=== PATIENT | female | born 2000 | race Caucasian/White ===

== ENCOUNTER 2020-08-07 11:18 | Emergency (ER) | payer OTHER ==
[~2020-08-07] VITALS: Ht 149.9 cm; Wt 59.0 kg
[2020-08-07 11:23] VITALS: BP 120/72
--- NOTE | 2020-08-07 11:34 | NUR ---
Patient ambulated to bed 12. RN evaluating patient at bedside.
--- NOTE | 2020-08-07 11:47 | NUR ---
PATIENT PRESENTS TO ED WITH EPIGASTRIC PAIN SINCE THURSDAY . PT STATES PAIN IS CONSTANT AND IS BEGINNING TO GET WORSE. PT EXPERIENCING NAUSEA BUT NO VOMITING; DENIES DYSURIA SKIN IS PINK/WARM/DRY; AAOX4 WITH EVEN AND STEADY GAIT; LUNGS CLEAR BL; HR EVEN AND REGULAR; PT DENIES ANY FEVER, CP, SOB, OR COUGH AT THIS TIME; PATIENT STATES PAIN OF 9/10 AT THIS TIME; VSS; PATIENT POSITIONED FOR COMFORT; HOB ELEVATED; BEDRAILS UP X2; BED DOWN. ER MD MADE AWARE OF PT STATUS.
[2020-08-07] MEDS ORDERED: FAMOTIDINE 20 MG TAB PO ONE (11:55)
--- NOTE | 2020-08-07 12:08 | NUR ---
us at bedside
[2020-08-07 12:11] LABS: BASOPHILS % (AUTO) 0.8 % (0.0-2.0); EOSINOPHILS % (AUTO) 0.6 % (0.0-4.0); HEMATOCRIT 38.1 % (36-48); HEMOGLOBIN 12.5 g/dL (12.0-16.0); LYMPHOCYTES # (AUTO) 1.6 K/uL (2.5-16.5); LYMPHOCYTES % (AUTO) 27.7 % (20.5-51.1); MEAN CORPUSCULAR HEMOGLOBIN 30 pg (27-31); MEAN CORPUSCULAR HGB CONC 33 g/dL (33-37); MEAN CORPUSCULAR VOLUME 90.4 fL (80-94); MONOCYTES # (AUTO) 0.4 K/uL (0.8-1.0); MONOCYTES % (AUTO) 6.7 % (1.7-9.3); NEUTROPHILS # (AUTO) 3.7 K/uL (1.8-7.7); NEUTROPHILS % (AUTO) 64.2 % (42.2-75.2); PLATELET COUNT (AUTO) 288 K/uL (140-450); RED BLOOD CELL COUNT(AUTO) 4.22 MIL/uL (4.20-5.40); RED CELL DISTRIBUTION WIDTH 14.1 % (11.6-13.7); WHITE BLOOD COUNT (AUTO) 5.8 K/uL (4.8-10.8)
[2020-08-07 12:29] LABS: ALBUMIN 3.8 g/dL (3.4-5.0); ANION GAP 14.7 (8-16); CARBON DIOXIDE 25.2 mmol/L (21-32); CREATININE 0.7 mg/dL (0.6-1.3); POTASSIUM 3.9 mmol/L (3.5-5.1); TOTAL BILIRUBIN 0.6 mg/dL (0.0-1.0)
[2020-08-07 13:24] VITALS: BP 129/77
== END 2020-08-07 13:25 | disposition home or self-care (01) ==
LOC: MED 11:18
DX: K29.70 Gastritis, unspecified, without bleeding (principal); F12.90 Cannabis use, unspecified, uncomplicated
CPT/HCPCS: 36415; 76705; 80053; 81002; 81025; 83690; 85025; 99284; Q0092

== ENCOUNTER 2020-12-10 09:58 | Emergency (ER) | payer OTHER ==
[~2020-12-10] VITALS: Ht 149.9 cm; Wt 60.3 kg
[2020-12-10 10:05] VITALS: BP 132/81
[2020-12-10 10:27] LABS: BASOPHILS % (AUTO) 0.5 % (0.0-2.0); EOSINOPHILS % (AUTO) 0.7 % (0.0-4.0); HEMATOCRIT 37.5 % (36-48); HEMOGLOBIN 12.5 g/dL (12.0-16.0); LYMPHOCYTES # (AUTO) 1.4 K/uL (2.5-16.5); LYMPHOCYTES % (AUTO) 27.2 % (20.5-51.1); MEAN CORPUSCULAR HEMOGLOBIN 30 pg (27-31); MEAN CORPUSCULAR HGB CONC 33 g/dL (33-37); MEAN CORPUSCULAR VOLUME 88.4 fL (80-94); MONOCYTES # (AUTO) 0.3 K/uL (0.8-1.0); MONOCYTES % (AUTO) 4.8 % (1.7-9.3); NEUTROPHILS # (AUTO) 3.5 K/uL (1.8-7.7); NEUTROPHILS % (AUTO) 66.8 % (42.2-75.2); PLATELET COUNT (AUTO) 284 K/uL (140-450); RED BLOOD CELL COUNT(AUTO) 4.24 MIL/uL (4.20-5.40); RED CELL DISTRIBUTION WIDTH 14.5 % (11.6-13.7); WHITE BLOOD COUNT (AUTO) 5.3 K/uL (4.8-10.8)
[2020-12-10 10:41] LABS: APPEARANCE,URINE CLEAR (CLEAR); BILIRUBIN,URINE NEGATIVE (NEGATIVE); COLOR,URINE YELLOW (YELLOW); LEUKOCYTE ESTERASE ,URINE NEGATIVE (NEGATIVE); NITRITE, URINE NEGATIVE (NEGATIVE); UGLUCOSE NEGATIVE (NEGATIVE)
[2020-12-10 10:44] LABS: ANION GAP 11.3 (8-16); CREATININE 0.5 mg/dL (0.6-1.3); POTASSIUM 3.3 mmol/L (3.5-5.1)
[2020-12-10 10:45] LABS: BLOOD, URINE 1+ (NEGATIVE); RBC,URINE 0-5 /HPF (0-5); WBC,URINE 0-5 /HPF (0-5)
[2020-12-10 12:18] VITALS: BP 128/79
== END 2020-12-10 12:18 | disposition home or self-care (01) ==
LOC: MED 09:58
DX: O46.8X1 Other antepartum hemorrhage, first trimester (principal); Z3A.11 11 weeks gestation of pregnancy
CPT/HCPCS: 36415; 76805; 80048; 81001; 81025; 84702; 85025; 86900; 86901; 99284

== ENCOUNTER 2021-04-09 06:45 | Emergency (ER) | payer OTHER ==
[~2021-04-09] VITALS: Ht 149.9 cm; Wt 73.9 kg
[2021-04-09 06:50] VITALS: BP 121/76
--- NOTE | 2021-04-09 06:54 | NUR ---
PT AMBULATED TO BED 11
--- NOTE | 2021-04-09 06:56 | NUR ---
pt ambulated to restroom with steady gait and back to bed 11.
--- NOTE | 2021-04-09 06:57 | NUR ---
[facility] [place] in [facility] - 04/09/21 at 0657 by STELLA PT TAKEN TO BED 11
--- NOTE | 2021-04-09 06:57 | NUR ---
20 yo f bib self with c/c of sob while lying down x1 day. pt denies sob worsening with activity. pt stated she is 27 wks and is receiving care. pt denies chest pain, fever, chills, and cough. pt is sitting up in bed, bed locked in lowest position, side rails x1. pt's boyfriend is at bedside. all needs are met at this time. denies hx and rx last menst: 09/14/20 nka
--- NOTE | 2021-04-09 07:03 | NUR ---
Report and continuation of care received from AMRANDO Funes.
--- NOTE | 2021-04-09 07:03 | NUR ---
report given to valery man. transfer of care at this time.
--- NOTE | 2021-04-09 07:18 | NUR ---
Dr. Isidro is evaluating patient at bedside with Ultrasound.
--- NOTE | 2021-04-09 07:34 | NUR ---
EMT at bedside for EKG.
--- NOTE | 2021-04-09 07:58 | NUR ---
Dr. Isidro is reevaluating patient at bedside.
[2021-04-09 08:03] VITALS: BP 121/76
--- NOTE | 2021-04-09 08:03 | NUR ---
Patient discharged with v/s stable. Written and verbal after care instructions given and explained. Patient verbalized understanding. Ambulatory with steady gait. All questions addressed prior to discharge. Advised to follow up with PMD, [employer].
== END 2021-04-09 08:03 | disposition home or self-care (01) ==
LOC: MED 06:45
DX: O26.892 Other specified pregnancy related conditions, second trimester (principal); R06.00 Dyspnea, unspecified; Z3A.27 27 weeks gestation of pregnancy
CPT/HCPCS: 81002; 81025; 93005; 99284

== ENCOUNTER 2021-06-28 07:50 | Inpatient (IN) | payer OTHER, SELFPAY ==
[~2021-06-28] VITALS: Ht 149.9 cm; Wt 79.8 kg
[2021-06-28] MEDS ORDERED: NALBUPHINE 10 MG/ML AMP IVP PRN (08:25)
[2021-06-28] MEDS ORDERED: METHYLERGONOVINE 0.2 MG/ML AMP IM PRN ×2 (08:25→18:15)
[2021-06-28] MEDS ORDERED: CARBOPROST 250 MCG/ML AMP IM PRN (08:25)
[2021-06-28] MEDS ORDERED: PROMETHAZINE 25 MG/ML VIAL IVP PRN (08:25)
[2021-06-28] MEDS ORDERED: LACTATED RINGERS 500 ML IV SCH (08:25)
[2021-06-28] MEDS ORDERED: PRETAB PO (08:37)
--- NOTE | 2021-06-28 08:48 | NUR ---
PATIENT HAS BEEN SCREENED AND CATEGORIZED LOW NUTRITION RISK. PATIENT WILL BE SEEN WITHIN 7 DAYS OF ADMISSION. 07/04/[address]
[2021-06-28 10:20] LABS: APPEARANCE,URINE HAZY (CLEAR); BILIRUBIN,URINE NEGATIVE (NEGATIVE); BLOOD, URINE NEGATIVE (NEGATIVE); COLOR,URINE YELLOW (YELLOW); LEUKOCYTE ESTERASE ,URINE NEGATIVE (NEGATIVE); NITRITE, URINE NEGATIVE (NEGATIVE); UGLUCOSE NEGATIVE (NEGATIVE)
[2021-06-28] MEDS ORDERED: OXYTOCIN 20 UNITS in LACTATED RINGERS 1,000 ML IV SCH (10:20)
[2021-06-28 10:23] LABS: BASOPHILS % (AUTO) 0.2 % (0.0-2.0); EOSINOPHILS % (AUTO) 0.1 % (0.0-4.0); HEMATOCRIT 39.3 % (36-48); LYMPHOCYTES # (AUTO) 1.1 K/uL (2.5-16.5); LYMPHOCYTES % (AUTO) 11.1 % (20.5-51.1); MEAN CORPUSCULAR HEMOGLOBIN 31 pg (27-31); MEAN CORPUSCULAR HGB CONC 33 g/dL (33-37); MEAN CORPUSCULAR VOLUME 92.9 fL (80-94); MONOCYTES # (AUTO) 0.4 K/uL (0.8-1.0); MONOCYTES % (AUTO) 3.9 % (1.7-9.3); NEUTROPHILS # (AUTO) 8.5 K/uL (1.8-7.7); NEUTROPHILS % (AUTO) 84.7 % (42.2-75.2); PLATELET COUNT (AUTO) 205 K/uL (140-450); RED BLOOD CELL COUNT(AUTO) 4.23 MIL/uL (4.20-5.40); RED CELL DISTRIBUTION WIDTH 16.3 % (11.6-13.7)
[2021-06-28] MEDS ORDERED: OXYTOCIN 20 UNITS/LR PREMIX 1,000 ML IV ONE (10:23)
[2021-06-28 10:31] LABS: RBC,URINE 0-5 /HPF (0-5); WBC,URINE 0-5 /HPF (0-5)
[2021-06-28 10:36] LABS: BARBITURATE, URINE NEGATIVE ng/ml (NEG <=200); BENZODIAZEPINE, URINE NEGATIVE ng/mL (NEG <=200); CANNABINOID, URINE NEGATIVE ng/mL (NEG <=50); COCAINE, URINE NEGATIVE ng/mL (NEG <=300); OPIATE, URINE NEGATIVE ng/mL (NEG <=2000); PHENCYCLIDINE SCREEN,URINE NEGATIVE ng/mL (NEG <=25)
[2021-06-28 10:40] LABS: ALBUMIN 2.7 g/dL (3.4-5.0); CARBON DIOXIDE 19.7 mmol/L (21-32); CREATININE 0.6 mg/dL (0.6-1.3); POTASSIUM 3.7 mmol/L (3.5-5.1); TOTAL BILIRUBIN 0.3 mg/dL (0.0-1.0)
[2021-06-28] MEDS: LACTATED RINGERS 1,000 ML IV SCH ×2 (12:40→16:11)
[2021-06-28] MEDS ORDERED: ROPIVACAINE 0.2%/NS PREMIX 200 ML EPI ONE (13:52)
[2021-06-28] MEDS ORDERED: ROPIVACAINE 0.2%/NS PREMIX 100 ML EPI SCH (14:20)
[2021-06-28] MEDS ORDERED: OXYTOCIN 10 UNITS/ML VIAL IM PRN (18:15)
[2021-06-28] MEDS ORDERED: TEMAZEPAM 15 MG CAP PO PRN (18:15)
[2021-06-28] MEDS ORDERED: BENZOCAINE/MENTHOL 20%-0.5% 60 GM CAN TP PRN (18:15)
[2021-06-28] MEDS ORDERED: IBUPROFEN 800 MG TAB PO PRN (18:15)
[2021-06-28] MEDS ORDERED: MEASLES, MUMPS, AND RUBELLA 1 VIAL SQVAC PRN ×2 (18:15→18:25)
[2021-06-28] MEDS ORDERED: oxyCODONE/APAP 5/325 MG 1 TAB TAB PO PRN (18:15)
[2021-06-28] MEDS ORDERED: DOCUSATE SOD/SENNA 50/8.6 MG 1 TAB PO SCH (21:00)
[2021-06-28] MEDS: HYDROcodone/APAP 5/325 MG 1 TAB TAB PO PRN (21:43)
[2021-06-29 06:09] LABS: HEMATOCRIT 30.8 % (36-48); HEMOGLOBIN 10.4 g/dL (12.0-16.0)
[2021-06-29] MEDS: HYDROcodone/APAP 5/325 MG 1 TAB TAB PO PRN (23:40)
== END 2021-06-30 13:15 | disposition home or self-care (01) | DRG 560 ==
LOC: MLD 07:50 → OBSVTOIN 08:23 → MFCC 21:15
PROVIDERS: ADMIT Obstetrics & Gynecology; ATTEND Obstetrics & Gynecology
PROC: 10E0XZZ Delivery of Products of Conception, External Approach (ICD-10-PCS; principal; 2021-06-28)
PROC: 0W8NXZZ Division of Female Perineum, External Approach (ICD-10-PCS; 2021-06-28)
PROC: 3E0R3BZ Introduction of Anesthetic Agent into Spinal Canal, Percutaneous Approach (ICD-10-PCS; 2021-06-28)
PROC: 00HU33Z Insertion of Infusion Device into Spinal Canal, Percutaneous Approach (ICD-10-PCS; 2021-06-28)
DX: O69.81X0 Labor and delivery complicated by cord around neck, without compression, not applicable or unspecified (principal); Z37.0 Single live birth; E66.9 Obesity, unspecified; Z20.822 Contact with and (suspected) exposure to COVID-19; O99.214 Obesity complicating childbirth; Z3A.39 39 weeks gestation of pregnancy
CPT/HCPCS: 36415; 51702; 59409; 80053; 80305; 81001; 85018; 85025; 86592; 86762; 86886; 86900; 86901; 87653-90; G0378; J2300; J2550; J2590; J2795

== ENCOUNTER 2022-08-12 02:14 | Emergency (ER) | payer OTHER ==
[~2022-08-12] VITALS: Ht 149.9 cm; Wt 54.4 kg
[~2022-08-12 02:14] MED LIST: PRETAB PO
[2022-08-12 02:21] VITALS: BP 132/77
--- NOTE | 2022-08-12 02:25 | NUR ---
TO [facility]OBBY A/W BED AMBULATORY
--- NOTE | 2022-08-12 03:05 | NUR ---
TO [facility] AMBULATORY
--- NOTE | 2022-08-12 03:10 | NUR ---
SEEN AND EXAMINED BY TRACIE
[2022-08-12] MEDS ORDERED: DICYCLOMINE HCL LIQUID 20 MG, ALUMINUM HYD/MAG/SIMETHICONE 30 ML, LIDOCAINE VISCOUS 2% ... PO ONE ×3 (03:30)
[2022-08-12] MEDS ORDERED: ALUMINUM HYD/MAG/SIMETHICONE 30 ML UDC ONE (03:39)
[2022-08-12] MEDS ORDERED: DICYCLOMINE HCL LIQUID 10 MG/5 ML UDC ONE (03:39)
[2022-08-12 03:52] LABS: HEMATOCRIT 43.3 % (36-48); HEMOGLOBIN 14.4 g/dL (12.0-16.0); LYMPHOCYTES # (AUTO) 0.6 K/uL (2.5-16.5); LYMPHOCYTES % (AUTO) 16.5 % (20.5-51.1); MEAN CORPUSCULAR HEMOGLOBIN 30 pg (27-31); MEAN CORPUSCULAR HGB CONC 33 g/dL (33-37); MEAN CORPUSCULAR VOLUME 88.2 fL (80-94); MONOCYTES # (AUTO) 0.2 K/uL (0.8-1.0); MONOCYTES % (AUTO) 4.5 % (1.7-9.3); NEUTROPHILS # (AUTO) 2.9 K/uL (1.8-7.7); PLATELET COUNT (AUTO) 266 K/uL (140-450); RED CELL DISTRIBUTION WIDTH 14.6 % (11.6-13.7); WHITE BLOOD COUNT (AUTO) 3.7 K/uL (4.8-10.8)
[2022-08-12 04:24] LABS: ALBUMIN 3.9 g/dL (3.4-5.0); ANION GAP 13.1 (8-16); CARBON DIOXIDE 27.1 mmol/L (21-32); CREATININE 0.8 mg/dL (0.6-1.3); POTASSIUM 4.2 mmol/L (3.5-5.1); TOTAL BILIRUBIN 0.4 mg/dL (0.0-1.0)
[2022-08-12 04:39] LABS: APPEARANCE,URINE CLEAR (CLEAR); BILIRUBIN,URINE NEGATIVE (NEGATIVE); BLOOD, URINE NEGATIVE (NEGATIVE); COLOR,URINE YELLOW (YELLOW); LEUKOCYTE ESTERASE ,URINE NEGATIVE (NEGATIVE); NITRITE, URINE NEGATIVE (NEGATIVE); UGLUCOSE NEGATIVE (NEGATIVE)
[2022-08-12] MEDS ORDERED: KETOROLAC 30 MG/ML VIAL IM ONE (04:45)
[2022-08-12] MEDS ORDERED: NAPR-1704 PO (05:14)
[2022-08-12] MEDS ORDERED: MAG-27 PO (05:14)
[2022-08-12 05:19] VITALS: BP 132/77
--- NOTE | 2022-08-12 05:19 | NUR ---
Patient discharged with v/s stable. Written and verbal after care instructions given and explained. Patient alert, oriented and verbalized understanding of instructions. Ambulatory with steady gait. All questions addressed prior to discharge. ID band removed. Patient advised to follow up with PMD. Rx of MYLANTA AND NAPROSYN given. Patient educated on indication of medication including possible reaction and side effects. Opportunity to ask questions provided and answered.
== END 2022-08-12 05:19 | disposition home or self-care (01) ==
LOC: MED 02:14
DX: R10.13 Epigastric pain (principal)
CPT/HCPCS: 36415; 80053; 81003; 81025; 83690; 85025; 93005; 96372; 99284; J1885

== ENCOUNTER 2023-09-26 02:42 | Emergency (ER) | payer OTHER ==
[~2023-09-26] VITALS: Ht 149.9 cm; Wt 77.6 kg
[~2023-09-26 02:42] MED LIST changes: +MAG-27 PO; +NAPR-1704 PO
[2023-09-26 02:50] VITALS: BP 140/73; PULSE 87; RESP 16; TEMP 98; O2SAT 98
[2023-09-26] MEDS ORDERED: diphenhydrAMINE 50 MG/ML VIAL IM ONE (03:20)
[2023-09-26] MEDS ORDERED: methylPREDNISolone SS 125 MG in WATER STERILE 2 ML IM ONE (03:20)
[2023-09-26] MEDS ORDERED: methylPREDNISolone SS 125 MG/2 ML VIAL ONE (03:23)
[2023-09-26] MEDS ORDERED: WATER STERILE 10 ML MC ONE (03:23)
[2023-09-26] MEDS ORDERED: BEN50 PO ×2 (03:58→04:08)
[2023-09-26] MEDS ORDERED: METH4TAB1 PO ×2 (03:58→04:08)
[2023-09-26 04:10] VITALS: BP 140/73; PULSE 87; RESP 16; TEMP 98; O2SAT 98
== END 2023-09-26 04:10 | disposition home or self-care (01) ==
LOC: MED 02:42
DX: L50.9 Urticaria, unspecified (principal); Z79.899 Other long term (current) drug therapy
CPT/HCPCS: 96372; 99284; J1200; J2930

== ENCOUNTER 2023-10-12 11:07 | Observation (INO) | payer OTHER ==
[~2023-10-12] VITALS: Ht 149.9 cm; Wt 78.5 kg
[2023-10-12 11:00] VITALS: BP 131/88; PULSE 96; RESP 18; TEMP 97.9
[~2023-10-12 11:07] MED LIST changes: +BEN50 PO; +METH4TAB1 PO
[2023-10-12] MEDS ORDERED: LACTATED RINGERS 500 ML IV SCH (11:40)
[2023-10-12] MEDS ORDERED: LACTATED RINGERS 1,000 ML IV SCH (11:40)
[2023-10-12] MEDS ORDERED: CARBOPROST 250 MCG/ML AMP IM PRN (11:40)
[2023-10-12] MEDS ORDERED: METHYLERGONOVINE 0.2 MG/ML AMP IM PRN (11:40)
[2023-10-12] MEDS ORDERED: MORPHINE SULFATE 10 MG/ML VIAL IVP PRN (11:50)
[2023-10-12] MEDS ORDERED: ONDANSETRON 4 MG/2 ML VIAL IVP PRN (11:50)
[2023-10-12 12:07] LABS: BASOPHILS % (AUTO) 0.4 % (0.0-2.0); EOSINOPHILS # (AUTO) 0.1 K/uL (0-0.4); EOSINOPHILS % (AUTO) 0.8 % (0.0-4.0); HEMATOCRIT 36.7 % (36-48); HEMOGLOBIN 12.4 g/dL (12.0-16.0); LYMPHOCYTES # (AUTO) 1.2 K/uL (2.5-16.5); LYMPHOCYTES % (AUTO) 19.2 % (20.5-51.1); MEAN CORPUSCULAR HEMOGLOBIN 30 pg (27-31); MEAN CORPUSCULAR HGB CONC 34 g/dL (33-37); MEAN CORPUSCULAR VOLUME 88.2 fL (80-94); MONOCYTES # (AUTO) 0.4 K/uL (0.8-1.0); MONOCYTES % (AUTO) 5.8 % (1.7-9.3); NEUTROPHILS # (AUTO) 4.8 K/uL (1.8-7.7); NEUTROPHILS % (AUTO) 73.8 % (42.2-75.2); PLATELET COUNT (AUTO) 196 K/uL (140-450); RED BLOOD CELL COUNT(AUTO) 4.16 MIL/uL (4.20-5.40); RED CELL DISTRIBUTION WIDTH 15.6 % (11.6-13.7); WHITE BLOOD COUNT (AUTO) 6.5 K/uL (4.8-10.8)
[2023-10-12 12:19] LABS: ALBUMIN 2.3 g/dL (3.4-5.0); ANION GAP 14.3 (8-16); CALCIUM 8.7 mg/dL (8.5-10.1); CARBON DIOXIDE 23.3 mmol/L (21-32); CREATININE 0.6 mg/dL (0.6-1.3); POTASSIUM 3.6 mmol/L (3.5-5.1); TOTAL BILIRUBIN 0.3 mg/dL (0.0-1.0); TOTAL PROTEIN, SERUM 7.6 g/dL (6.4-8.2)
[2023-10-12 12:30] LABS: INR 0.87 (0.8-1.2); PARTIAL THROMBOPLASTIN TIME 24.4 secs (22-35.6); PROTHROMBIN TIME 9.2 secs (10.8-13.4)
[2023-10-12 12:48] LABS: APPEARANCE,URINE CLEAR (CLEAR); BILIRUBIN,URINE NEGATIVE (NEGATIVE); BLOOD, URINE TRACE-L (NEGATIVE); COLOR,URINE YELLOW (YELLOW); LEUKOCYTE ESTERASE ,URINE NEGATIVE (NEGATIVE); NITRITE, URINE NEGATIVE (NEGATIVE); PROTEIN,URINE TRACE (NEGATIVE); UGLUCOSE NEGATIVE (NEGATIVE); UROBILINOGEN,URINE 0.2 EU/dL (0.2 - 1)
[2023-10-12 12:54] LABS: AMPHETAMINE, URINE NEGATIVE ng/ml (NEG <=1000); BARBITURATE, URINE NEGATIVE ng/ml (NEG <=200); BENZODIAZEPINE, URINE NEGATIVE ng/mL (NEG <=200); CANNABINOID, URINE NEGATIVE ng/mL (NEG <=50); COCAINE, URINE NEGATIVE ng/mL (NEG <=300); OPIATE, URINE NEGATIVE ng/mL (NEG <=2000); PHENCYCLIDINE SCREEN,URINE NEGATIVE ng/mL (NEG <=25)
[2023-10-12 12:55] LABS: BACTERIA,URINE 10-30 (MOD) /HPF (None Seen); RBC,URINE 0-5 /HPF (0-5); WBC,URINE 0-5 /HPF (0-5)
[2023-10-12 12:56] LABS: SQUAMOUS EPITHELIAL CELL,UR 4-10 (MOD) /LPF (0-3 (FEW))
== END 2023-10-12 14:36 | disposition home or self-care (01) ==
LOC: MLD 11:07 → OBSVTOIN 11:37 → INTOOBSV 11:37
PROVIDERS: ADMIT Obstetrics & Gynecology; ATTEND Obstetrics & Gynecology
DX: O62.9 Abnormality of forces of labor, unspecified (principal); Z20.822 Contact with and (suspected) exposure to COVID-19; Z3A.39 39 weeks gestation of pregnancy
CPT/HCPCS: 36415; 80053; 80305; 81001; 85025; 85610; 85730; 86592; 86886; 86900; 86901; 87086; 87426; G0378; G0379

== ENCOUNTER 2024-01-13 13:33 | Emergency (ER) | payer OTHER ==
[~2024-01-13] VITALS: Ht 149.9 cm; Wt 73.9 kg
[2024-01-13 13:53] VITALS: BP 138/89; PULSE 115; RESP 20; TEMP 97.7; O2SAT 98
[2024-01-13] MEDS ORDERED: ACYC-276 PO (14:41)
[2024-01-13] MEDS ORDERED: PRED20TA5 PO (14:41)
[2024-01-13] MEDS ORDERED: POLY15SO48 LEFT EYE (14:41)
[2024-01-13 15:48] VITALS: BP 134/88; PULSE 88; RESP 19; TEMP 98.2; O2SAT 99
== END 2024-01-13 14:52 | disposition home or self-care (01) ==
LOC: MED 13:33
DX: G51.0 Bell's palsy (principal); Z79.899 Other long term (current) drug therapy
CPT/HCPCS: 99283